=== PATIENT | male | born 1960 | race Caucasian/White ===

== ENCOUNTER 2016-08-15 22:16 | Emergency (ER) | payer MEDICAID ==
[~2016-08-15] VITALS: Ht 167.6 cm; Wt 90.7 kg
[2016-08-15 22:38] VITALS: BP_SYST 124
[2016-08-16 02:07] VITALS: BP_SYST 124
== END 2016-08-16 02:07 | disposition home or self-care (01) ==
LOC: SED 22:16
DX: S40.861A Insect bite (nonvenomous) of right upper arm, initial encounter (principal); S50.861A Insect bite (nonvenomous) of right forearm, initial encounter; R21 Rash and other nonspecific skin eruption; W57.XXXA Bitten or stung by nonvenomous insect and other nonvenomous arthropods, initial encounter; Y93.89 Activity, other specified; Y92.89 Other specified places as the place of occurrence of the external cause; Y99.8 Other external cause status
CPT/HCPCS: 99283

== ENCOUNTER 2018-05-12 14:04 | Emergency (ER) | payer MEDICAID ==
[~2018-05-12] VITALS: Ht 165.1 cm; Wt 90.7 kg
[2018-05-12 14:21] VITALS: BP_SYST 159
--- NOTE | 2018-05-12 14:24 | NUR ---
Placed in room 08 . Placed on ekg monitor tech, blood pressure machine and pulse oximeter. To gown for exam. Side rails up.
--- NOTE | 2018-05-12 14:26 | NUR ---
Pt arrived to the ED with family member who is translating. Pt has complaints of a cough, body aches and fever X3 days. Jad N/Yudi. Pt provided ice packs. Will continue to monitor
--- NOTE | 2018-05-12 14:30 | NUR ---
Dr Trent at bedside examining
[2018-05-12] MEDS ORDERED: ACETAMINOPHEN 500 MG TABLET PO ONE (14:45)
[2018-05-12] MEDS ORDERED: ALBUTEROL SULFATE 0.083% 2.5 MG/3 ML VIAL.NEB INH ONE (15:30)
[2018-05-12] MEDS ORDERED: OSELTAMIVIR PHOSPHATE 75 MG CAPSULE PO ONE (15:45)
--- NOTE | 2018-05-12 16:02 | NUR ---
Patient given written and verbal discharge instructions and verbalizes understanding. ER MD discussed with patient the results and treatment provided. Patient in stable condition. ID arm band removed. IV catheter removed intact and dressing applied, no active bleeding. Rx of Tessalon Perles, Tamiflu, Tylenol given. Patient educated on pain management and to follow up with PMD. Opportunity for questions provided and answered. Medication side effect fact sheet provided.
[2018-05-12 17:34] VITALS: BP_SYST 153
== END 2018-05-12 16:02 | disposition home or self-care (01) ==
LOC: SED 14:04
DX: J11.1 Influenza due to unidentified influenza virus with other respiratory manifestations (principal); R03.0 Elevated blood-pressure reading, without diagnosis of hypertension; E78.5 Hyperlipidemia, unspecified; K21.9 Gastro-esophageal reflux disease without esophagitis; Z85.828 Personal history of other malignant neoplasm of skin
CPT/HCPCS: 71045; 86710; 94640; 99284; J7613; 36415; 99283